=== PATIENT | female | born 2005 | race Caucasian/White ===

== ENCOUNTER 2024-10-21 14:13 | Emergency (ER) | payer MEDICAID, OTHER | END 2024-10-21 16:54 | disposition home or self-care (01) | LOC: JP.ED 14:13 | DX: S62.652A Nondisplaced fracture of middle phalanx of right middle finger, initial encounter for closed fracture (principal); S62.654A Nondisplaced fracture of middle phalanx of right ring finger, initial encounter for closed fracture; S62.92XA Unspecified fracture of left hand, initial encounter for closed fracture; Z88.0 Allergy status to penicillin; X50.1XXA Overexertion from prolonged static or awkward postures, initial encounter | CPT/HCPCS: 73120-26-RT; 73120-RT; 99283 ==